=== PATIENT | female | born 1990 | race Caucasian/White ===

== ENCOUNTER 2019-08-07 21:52 | Emergency (ER) | payer OTHER, MEDICAID, SELFPAY ==
[2019-08-07 22:00] VITALS: BP 136/87; PULSE 75; RESP 15; TEMP 36.8; O2SAT 100; BMI 33.3
--- NOTE | 2019-08-07 22:00 | DI.RAD.S_ITS ---
PROCEDURE: XR ANKLE RT MIN 3V INDICATIONS: fell twisting ankle now with pain and swelling TECHNIQUE: 3 views of the ankle were acquired. COMPARISON: None. FINDINGS: Bones: No displaced fractures or dislocations. Ankle mortise is normally aligned. No suspicious bony lesions. Soft tissues: Moderate soft tissue swelling about the ankles more pronounced overlying the lateral malleolus. There may be a small ankle effusion. IMPRESSION: No displaced ankle fractures. Dictated by: Javier Shetty M.D. on 08/08/2019 at 9:27 Approved by: Javier Shetty M.D. on 08/08/2019 at 9:28
[2019-08-07] MEDS: KETOROLAC 60 MG/2 ML VIAL 30 MG IM (23:21)
[2019-08-07 23:40] VITALS: BP 126/73; PULSE 66; RESP 18; O2SAT 100
--- NOTE | 2019-08-08 17:57 | ED.LOWEXIN ---
HPI - Extremity Injury (Lower) General Chief Complaint: Extremity Injury, Lower Stated Complaint: RIGHT ANKLE INJURY Time Seen by Provider: 08/07/19 22:03 Source: patient Mode of arrival: Family Vehicle Limitations: no limitations History of Present Illness HPI Narrative: HPI: The patient is a 28-year-old female who states that she was standing on a chair doing some work and when she stepped off the chair she injured and twisted her right ankle. She did not fall to the ground or strike her head or neck. She does not have any back pain. She just develops severe pain and discomfort in her right lateral ankle. She had no other complaints. She denies any recent history of fever chills or sweats. She had no headache sore throat shortness of breath cough sputum production chest pain irregular heartbeat dizziness abdominal pain nausea vomiting diarrhea or urinary symptoms. Related Data Previous Rx's Medication Instructions Recorded oxycodone-acetaminophen 0 tab PO Q3HP PRN #20 tab 07/05/17 naproxen [Naprosyn] 500 mg PO BID PRN #20 tab 08/07/19 tramadol 50 mg PO Q6H PRN #12 tab 08/07/19 Allergies Allergy/AdvReac Type Severity Reaction Status Date / Time No Known Drug Allergies Allergy Verified 08/07/19 22:03 Review of Systems Review of Systems Narrative: Her review of systems were all negative except for those mentioned in the history of present illness Patient History Social History Smoking Status: Never smoker Smoking Status: Never smoker Substance Use Type: does not use Exam Narrative Exam Narrative: PHYSICAL EXAM: CONSTITUTIONAL: Awake, Alert, Oriented, Coherent, Cooperative in NAD. Does not appear toxic or ill. HEAD: AT/NC EENT: Oral mucosa is moist and pink, NECK: Supple, no obvious JVD, Trachea is midline without stridor, SPINE: No gross deformity, no palpable tenderness of the cervical, thoracic, lumbar or sacral spine. No CVA tenderness. THORAX: No deformity, retractions, chest wall tenderness,. LUNGS: Clear with symmetrical breath sounds without respiratory distress HEART: Normal heart tones, regular rhythm and rate without murmur. ABDOMEN: Soft, non-tender, EXTREMITIES: There was no tenderness to palpation of her right leg until I reached the lateral malleolus and distal fibula. She was able to flex and extend her knee. There was no tenderness to palpation over the proximal tibia or fibula. She was exquisitely tender to palpation over the lateral malleolus without any bony deformity. There was diffuse soft tissue swelling. Her injury occurred prior to coming into the emergency department. There was no ecchymosis at this time. Her talofibular ligaments were tender and her tail 0 tibial ligaments were also tender and swollen. She had no deformity of her foot however her lateral foot was tender to palpation along the proximal 5th metatarsal. Dorsalis pedis pulse was 2 +. Capillary refill was intact. Sensation was intact. SKIN: No rash, bruising, petechiae or purpura. NEURO: Awake, alert, oriented, conversive, cranial nerves II-XII are symmetrical and normal, moves all 4 extremities and is ambulatory Despite her history she was examined as if she had fallen in injured her and neck back in chest. Initial Vital Signs Initial Vital Signs: Vital Signs Temperature 98.3 F 08/07/19 22:00 Pulse Rate 75 08/07/19 22:00 Respiratory Rate 15 08/07/19 22:00 Blood Pressure 136/87 08/07/19 22:00 Pulse Oximetry 100 08/07/19 22:00 Course Orders Ordered: Discontinued Medications Ketorolac Tromethamine (Toradol) 30 mg IM NOW ONE Stop: 08/07/19 23:03 Last Admin: 08/07/19 23:21 Dose: 30 mg Documented by: BLANE Discharge Plan Departure Patient Disposition: Home Clinical Impression: Ankle sprain and strain Discharge Date/Time: 08/07/19 23:40 Instructions: DI for Ankle Sprain Activity Restrictions/Additional Instructions: 1. Follow up with your primary care physician and be re-evaluated in 48-72 hours. 2. Follow-up with the orthopedic surgeon Dr. Khoury 3. Elevate the ankle, apply ice arm for 20-30 minutes every 2 hours while awake. 4 take the Naprosyn twice a day for pain and discomfort and use the tramadol 50 mg every 6 hours as needed for pain on relieved by Naprosyn. You are using this medication as a rescue medicine. Prescriptions: New naproxen [Naprosyn] 500 mg tablet 500 mg PO BID PRN (Reason: pain) Qty: 20 RF: 0 tramadol 50 mg tablet 50 mg PO Q6H PRN (Reason: pain) Qty: 12 RF: 0 No Action oxycodone-acetaminophen 5 MG/325 MG tablet 0 tab PO Q3HP PRNQty: 20 RF: 0 Referrals: Dominick Khoury MD [Physician] - Vincent Carreon MD [Primary Care Provider] - ED Sign-out Cosign ED Attending Cosignature Attestation: I was immediately available in the department for consultation. This documentation has been reviewed and I agree with assessment and plan. Supervised by Charles Mireles MD
== END 2019-08-07 23:40 | disposition home or self-care (01) ==
PROVIDERS: Emergency Provider Emergency Medicine
DX: S93.401A Sprain of unspecified ligament of right ankle, initial encounter (principal); S96.911A Strain of unspecified muscle and tendon at ankle and foot level, right foot, initial encounter; W18.42XA Slipping, tripping and stumbling without falling due to stepping into hole or opening, initial encounter
CPT/HCPCS: 73610; 96372; 99283; J1885